=== PATIENT | male | born 1970 | race Two or more races ===

== ENCOUNTER 2020-07-12 08:04 | Outpatient (CLI) | payer OTHER | END 2020-07-12 08:13 | disposition home or self-care (01) | LOC: NUCLEAR 08:04 | PROVIDERS: ATTEND Internal Medicine Cardiovascular Disease | DX: J45.909 Unspecified asthma, uncomplicated (principal); I10 Essential (primary) hypertension; E11.9 Type 2 diabetes mellitus without complications; I63.89 Other cerebral infarction; Z74.01 Bed confinement status; Z88.8 Allergy status to other drugs, medicaments and biological substances; K25.9 Gastric ulcer, unspecified as acute or chronic, without hemorrhage or perforation; K44.9 Diaphragmatic hernia without obstruction or gangrene | CPT/HCPCS: 78452; 93017; A9500; J0153 ==